=== PATIENT | female | born 2000 | race Caucasian/White ===

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

== ENCOUNTER 2020-05-09 17:01 | Emergency (ER) | payer OTHER ==
[2020-05-09 17:13] VITALS: BP 127/85
--- NOTE | 2020-05-09 18:27 | ER Document Report ---
HPI - HPI Time Seen by Provider: 05/09/20 17:56 Pain Level: 5 Notes: 20-year-old female noted today with left ear pain for 2 days. Notes that she has had some decreased hearing out of her left ear. No discharge out of her ear. Did recently travel to [place]. Denies swimming. When she opens her jaw her ear pops. Denies any vertigo, dizziness. No sinus congestion, cough, sore throat, no fevers chills or additional symptoms. - EENT EENT: REPORTS: Ear Pain - LEFT - REPRODUCTIVE Reproductive: DENIES: : Past Medical History - Social History Smoking Status: Never Smoker Chew tobacco use (# tins/day): No Frequency of alcohol use: None Drug Abuse: None Family History: Reviewed & Not Pertinent Patient has homicidal ideation: No Pulmonary Medical History: Reports: Hx Asthma Musculoskeletal Medical History: Reports Hx Musculoskeletal Trauma Skin Medical History: Reports Hx MRSA Psychiatric Medical History: Reports: Hx Anxiety Past Surgical History: Reports: Hx Tonsillectomy - Immunizations Immunizations up to date: Yes Vertical Provider Document - INFECTION CONTROL TRAVEL OUTSIDE OF THE [place] IN LAST 30 DAYS: No - HEENT HEENT: Atraumatic Notes: Left ear is tender to palpation at the tragus and pinna. No surrounding erythema or swelling on the outer ear. Negative tenderness to palpation at the mastoid process. Ear canal is erythematous, swollen, associated with white purulence behind TM membrane. Right ear- TM intact, no swelling or erythema, no tenderness - NECK Neck: Normal Inspection - RESPIRATORY Respiratory: Breath Sounds Normal, No Respiratory Distress Course - Re-evaluation Re-evalutation: 05/10/20 08:25 Patient notified provider that her left ear is now bleeding. She reports decrease in her pain level now. Ear was reexamined. Mild blood in the ear canal noted, TM does appear perforated now. Patient history and physical consistent with acute otitis media with tm perforation. Will prescribe the patient antibiotics. Can use tylenol and ibuprofen for pain relief. Recommend she follows up with primary care and ENT as soon as possible. Return precautions to the emergency discussed to include worsening symptoms and the development of new symptoms. Patient acknowledges and verbalizes understanding of instructions and plan. All questions answered. - Vital Signs Vital signs: Temp Pulse Resp BP Pulse Ox 98.2 F 80 18 127/85 H 93 05/09/20 17:56 05/09/20 17:12 05/09/20 17:12 05/09/20 17:12 05/09/20 17:12 Discharge - Discharge Clinical Impression: Rupture of left tympanic membrane due to otitis media Otitis externa Qualifiers: Otitis externa type: unspecified type Chronicity: acute Laterality: left Qualified Code(s): H60.502 - Unspecified acute noninfective otitis externa, left ear Condition: Stable Disposition: HOME, SELF-CARE Instructions: Acetaminophen, Use of Ear Drops ([facility]), Otitis Externa ([facility]), Otitis Media ([facility]) Additional Instructions: It appears you have an inner ear infection that caused the rupture of your TM with a superimposed outer ear infection. Please take medication as prescribed. You may use Tylenol and ibuprofen for pain relief. Please return to the emergency department if you have worsening symptoms or the development of new symptoms. You may also return to emergency department if you have no improvement within 24 to 48 hours. Prescriptions: Ofloxacin [Floxin 0.3% Otic Drops 5 ml] 100 drop OT DAILY 7 Days #1 bottle
== END 2020-05-09 19:15 | disposition home or self-care (01) ==
LOC: ER 17:01
DX: H60.502 Unspecified acute noninfective otitis externa, left ear (principal); H66.92 Otitis media, unspecified, left ear; H72.92 Unspecified perforation of tympanic membrane, left ear; H92.02 Otalgia, left ear; Z86.14 Personal history of Methicillin resistant Staphylococcus aureus infection
CPT/HCPCS: 99283

== ENCOUNTER 2020-05-09 23:26 | Emergency (ER) | payer SELFPAY ==
[2020-05-09 23:32] VITALS: BP 141/84
[2020-05-09] MEDS ORDERED: TRAMADOL HCL 50 MG TABLET PO ONE (23:45)
[2020-05-09] MEDS ORDERED: KETOROLAC TROMETHAMINE 60 MG/2 ML SDV IM ONE (23:45)
--- NOTE | 2020-05-09 23:55 | ER Document Report ---
ED ENT - General Chief Complaint: Drainage from Ear Stated Complaint: EAR PAIN Time Seen by Provider: 05/09/20 23:37 Primary Care Provider: JOSE MIGUEL BROWNE DO [ASSOCIATE] - Follow up in 3-5 days (for ENT follow up) TRAVEL OUTSIDE OF THE [place] IN LAST 30 DAYS: No - HPI Notes: 20-year-old female to the emergency department with complaints of left ear pain that has persisted since this afternoon. She was seen earlier in our emergency department for perforated eardrum with otitis media and externa. She states prior to arrival she used the Cipro drops as well as took amoxicillin and took 1 regular strength Tylenol. She is not had good pain control. No fevers or chills. No nausea or vomiting. No sore throat. - Related Data Allergies/Adverse Reactions: No Known Drug Allergies Allergy (Verified 05/09/20 17:56) Home Medications: floxin gtt augmentin Past Medical History - General Information source: Patient - Social History Smoking Status: Never Smoker Frequency of alcohol use: None Drug Abuse: None Family History: Reviewed & Not Pertinent Pulmonary Medical History: Reports: Hx Asthma Musculoskeletal Medical History: Reports Hx Musculoskeletal Trauma Skin Medical History: Reports Hx MRSA Psychiatric Medical History: Reports: Hx Anxiety Past Surgical History: Reports: Hx Tonsillectomy - Immunizations Immunizations up to date: Yes Review of Systems - Review of Systems Constitutional: denies: Chills, Fever EENT: Ear pain, Ear discharge Cardiovascular: denies: Chest pain, Syncope, Lightheaded Respiratory: denies: Cough, Short of breath Gastrointestinal: denies: Abdominal pain, Diarrhea, Nausea, Vomiting Musculoskeletal: No symptoms reported Skin: No symptoms reported -: Yes All other systems reviewed and negative Physical Exam - Vital signs Vitals: Temp Pulse Resp BP Pulse Ox 99.1 F 113 H 16 141/84 H 95 05/09/20 23:30 05/09/20 23:30 05/09/20 23:30 05/09/20 23:30 05/09/20 23:30 Interpretation: Normal - General General appearance: Alert In distress: Moderate Notes: Moderate pain distress. Covering the left ear, slightly tearful - HEENT Head: Normocephalic, Atraumatic Eyes: Normal Pupils: PERRL Ears: Other - Pain with pulling on the auricle. There is noted bloody discharge from the left ear canal External canal: Blood in canal - Blood and discharge in the canal of the left ear Tympanic membrane: Perforation - There is perforation of the left hip TM with noted bloody and purulent discharge, Other - No mastoid tenderness, right TM and canal are clear Mouth/Lips: Normal Mucous membranes: Normal Pharynx: Normal. No: Peritonsillar abscess, Tonsillar hypertrophy Neck: Normal, Supple - Respiratory Respiratory status: No respiratory distress Chest status: Nontender Breath sounds: Normal Chest palpation: Normal - Cardiovascular Rhythm: Regular Heart sounds: Normal auscultation Murmur: No - Abdominal Inspection: Normal Distension: No distension Bowel sounds: Normal Tenderness: Nontender Organomegaly: No organomegaly - Psychological Associated symptoms: Normal affect, Normal mood - Skin Skin Temperature: Warm Skin Moisture: Dry Skin Color: Normal Course - Re-evaluation Re-evalutation: Impression: Left otitis media with perforation of the TM with bloody purulent discharge in the canal. Also suspect otitis externa. We will continue her Cipro drops but upgrade to Augmentin for antibiotics. We will also send the patient home with pain medicinestramadol and NSAIDs. Will give information for ENT. She received Toradol and tramadol here in the emergency department and her pain is improved. - Vital Signs Vital signs: Temp Pulse Resp BP Pulse Ox 99.1 F 113 H 16 141/84 H 95 05/09/20 23:30 05/09/20 23:30 05/09/20 23:30 05/09/20 23:30 05/09/20 23:30 Discharge - Discharge Clinical Impression: Otitis media, acute with perforation of eardrum Condition: Stable Disposition: HOME, SELF-CARE Instructions: Otitis Media ([facility]) Additional Instructions: STOP AMOXICILLIN, START AUGMENTIN. TAKE PAIN MEDS PRESCRIBED. FOLLOW UP WITH ENT. RETURN IF WORSENING SYMPTOMS. Prescriptions: Tramadol HCl [Ultram 50 mg Tablet] 50 mg PO Q4HP PRN #12 tab PRN Reason: Ibuprofen [Motrin 600 mg Tablet] 600 mg PO Q8HP PRN #24 tablet PRN Reason: Amoxicillin/Potassium Clav [Augmentin 875-125 Tablet] 1 tab PO BID #20 tablet Referrals: JOSE MIGUEL BROWNE DO [ASSOCIATE] - Follow up in 3-5 days (for ENT follow up)
== END 2020-05-10 00:25 | disposition home or self-care (01) ==
LOC: ER 23:26
DX: H66.92 Otitis media, unspecified, left ear (principal); Z86.14 Personal history of Methicillin resistant Staphylococcus aureus infection
CPT/HCPCS: 99284; 96372; J1885